=== PATIENT | female | born 1960 | race Caucasian/White ===

== ENCOUNTER 2019-02-11 19:00 | Emergency (ER) | payer OTHER ==
[~2019-02-11] VITALS: Ht 165.1 cm; Wt 75.3 kg
[2019-02-11] MEDS ORDERED: CLONAZEPAM0.125 MG (19:18)
[2019-02-12] MEDS ORDERED: BUTALB-ACETAMI1 EAC2 PO (01:59)
== END 2019-02-12 02:07 | disposition home or self-care (01) ==
LOC: ER 19:00
DX: G43.909 Migraine, unspecified, not intractable, without status migrainosus (principal); R11.11 Vomiting without nausea

== ENCOUNTER → 2021-06-01 | Emergency (ER) | payer OTHER ==
[~2021-06-01] VITALS: Ht 165.1 cm; Wt 83.0 kg
[~2021-06-01] MED LIST: ALBUTEROL2.5 MG/3 M IH; AZITHROMYCIN250 MG PO; BENZONATATE200 M1; BUTALB-ACETAMI1 EAC2 PO; CLONAZEPAM0.125 MG; PROVENTIL S2 MG/5 ML
== END | disposition home or self-care (01) ==
LOC: ER 12:47
DX: B34.8 Other viral infections of unspecified site (principal); J45.998 Other asthma; Z86.16 Personal history of COVID-19